=== PATIENT | female | born 1960 | race Two or more races ===

== ENCOUNTER 2023-05-11 07:10 | Outpatient (CLI) | payer OTHER ==
[2023-05-13] MEDS ORDERED: ACTOS30 MG PO (14:30)
[2023-05-13] MEDS ORDERED: CRESTOR5 MG PO (14:30)
[2023-05-13] MEDS ORDERED: GLUMETZA500 MG PO (14:30)
[2023-05-13] MEDS ORDERED: COZAAR100 MG PO (14:30)
[2023-05-13] MEDS ORDERED: SINGULAIR10 MG PO (14:31)
[2023-05-13] MEDS ORDERED: GRALISE600 MG PO (14:31)
== END 2023-05-11 07:17 | disposition home or self-care (01) ==
LOC: LAB 07:10
PROVIDERS: ATTEND Orthopaedic Surgery Hand Surgery
DX: Z20.822 Contact with and (suspected) exposure to COVID-19 (principal)

== ENCOUNTER 2023-05-14 06:43 | Day surgery (SDC) | payer OTHER ==
[~2023-05-14 06:43] MED LIST: ACTOS30 MG PO; COZAAR100 MG PO; CRESTOR5 MG PO; GLUMETZA500 MG PO; GRALISE600 MG PO; SINGULAIR10 MG PO
== END 2023-05-14 20:55 | disposition home or self-care (01) ==
LOC: CIR.AMB 06:43
PROVIDERS: ATTEND Orthopaedic Surgery Hand Surgery
DX: S62.616A Displaced fracture of proximal phalanx of right little finger, initial encounter for closed fracture (principal); I10 Essential (primary) hypertension; Z20.822 Contact with and (suspected) exposure to COVID-19